=== PATIENT | male | born 1975 | race African-American/Black ===

== ENCOUNTER 2019-12-29 17:24 | Emergency (ER) | payer OTHER ==
--- NOTE | 2019-12-29 18:18 | Event Note ---
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 Further treatment and workup at subsequent clinical providers discretion. Patient/guardian urged not to elope from the ED as their condition may be serious if not clinically assessed and managed. Initial orders include: recent travel to [place]
--- NOTE | 2019-12-29 18:54 | XRay Report ---
CHEST 2 VIEWS INDICATION: MAIN: sob; midchest pain x 1 week; no medical hx. COMPARISON: None. FINDINGS: Support devices: None. Heart: Within normal limits. Lungs/Pleura: No acute air space or interstitial disease. No significant pleural effusion. IMPRESSION: No acute findings. Signer Name: Juan Antonio So MD Signed: 12/29/2019 6:50 PM Workstation Name: [employer] [id number]
[2019-12-29 19:32] LABS: Basophils % (Auto) 0.6 % (0.0-1.8); Eosinophils # (Auto) 0.4 K/mm3 (0.0-0.4); Eosinophils % (Auto) 6.2 % (0.0-4.3); Hemoglobin 15.2 gm/dl (11.8-15.2); Lymphocytes # (Auto) 2.3 K/mm3 (1.2-5.4); Lymphocytes % (Auto) 32.8 % (13.4-35.0); Mean Corpuscular HGB Conc 33 % (32-34); Mean Corpuscular Volume 90 fl (84-94); Monocytes # (Auto) 0.8 K/mm3 (0.0-0.8); Monocytes % (Auto) 11.5 % (0.0-7.3); Platelet Count 293 K/mm3 (140-440); Red Blood Count 5.11 M/mm3 (3.65-5.03); Red Cell Distribution Width 13.8 % (13.2-15.2)
[2019-12-29 19:46] LABS: Alanine Aminotransferase 50 units/L (7-56); Albumin 4.5 g/dL (3.9-5); BUN/Creatinine Ratio 20; Blood Urea Nitrogen 18 mg/dL (9-20); Calcium 9.7 mg/dL (8.4-10.2); Hemolysis Index 12
--- NOTE | 2019-12-29 21:06 | Emergency Department Report ---
ED General Adult HPI - General Chief complaint: Dyspnea/Respdistress Stated complaint: DRY COUGH/SOB Time Seen by Provider: 12/29/19 18:15 Source: patient Mode of arrival: Ambulatory Limitations: No Limitations - History of Present Illness Initial comments: Patient is a 44-year-old gentleman who is presenting with cough mild shortness of breath chest tightness. Patient states symptoms started approximately 10 days ago while he was on vacation to the [place] [employer]. Patient has been back home for the past 5 days. He states that he initially had a mild sore throat and body aches as well but does have improved. Patient generally states his symptoms are better than when they started. Patient was worried about having contracted coronavirus on his travels and decided to come in for evaluation. Severity scale (0 -10): 2 Associated Symptoms: chest pain, cough, malaise, shortness of breath. denies: confusion, diaphoresis, fever/chills, headaches, loss of appetite, nausea/vomiting, rash, seizure, syncope, weakness - Related Data Allergies Allergy/AdvReac Type Severity Reaction Status Date / Time No Known Allergies Allergy Verified 12/29/19 18:17 ED Review of Systems ROS: Stated complaint: DRY COUGH/SOB Other details as noted in HPI Comment: All other systems reviewed and negative ED Past Medical Hx - Past Medical History Previous Medical History?: No - Surgical History Past Surgical History?: No - Social History Smoking Status: Never Smoker Substance Use Type: None ED Physical Exam - General Limitations: No Limitations General appearance: alert, in no apparent distress - Head Head exam: Present: atraumatic, normocephalic - Eye Eye exam: Present: normal appearance, PERRL, EOMI - ENT ENT exam: Present: mucous membranes moist - Neck Neck exam: Present: normal inspection - Respiratory Respiratory exam: Present: normal lung sounds bilaterally. Absent: respiratory distress, wheezes, rales, rhonchi - Cardiovascular Cardiovascular Exam: Present: regular rate, normal rhythm, normal heart sounds. Absent: systolic murmur, diastolic murmur, rubs, gallop - GI/Abdominal GI/Abdominal exam: Present: soft, normal bowel sounds. Absent: distended, tenderness, guarding, rebound - Rectal Rectal exam: Present: deferred - Extremities Exam Extremities exam: Present: normal inspection - Back Exam Back exam: Present: normal inspection - Neurological Exam Neurological exam: Present: alert, oriented X3 - Psychiatric Psychiatric exam: Present: normal affect, normal mood - Skin Skin exam: Present: warm, dry, intact, normal color. Absent: rash ED Course Vital Signs 12/29/19 12/29/19 12/29/19 18:17 20:10 20:30 Temperature 98.2 F 97.7 F Pulse Rate 78 89 66 Respiratory 16 17 16 Rate Blood Pressure 156/117 129/91 Blood Pressure 147/97 [Left] O2 Sat by Pulse 97 98 97 Oximetry 12/29/19 20:45 Temperature Pulse Rate 63 Respiratory 15 Rate Blood Pressure 130/92 Blood Pressure [Left] O2 Sat by Pulse 97 Oximetry ED Medical Decision Making - Lab Data Result diagrams: 12/29/19 19:02 12/29/19 19:02 Lab Results 12/29/19 12/29/19 12/29/19 Range/Units 19:02 19:02 19:30 WBC 7.2 (4.5-11.0) K/mm3 RBC 5.11 H (3.65-5.03) M/mm3 Hgb 15.2 (11.8-15.2) gm/dl Hct 46.0 H (35.5-45.6) % MCV 90 (84-94) fl MCH 30 (28-32) pg MCHC 33 (32-34) % RDW 13.8 (13.2-15.2) % Plt Count 293 (140-440) K/mm3 Lymph % (Auto) 32.8 (13.4-35.0) % [place] % (Auto) 11.5 H (0.0-7.3) % Eos % (Auto) 6.2 H (0.0-4.3) % Baso % (Auto) 0.6 (0.0-1.8) % Lymph # 2.3 (1.2-5.4) K/mm3 [place] # 0.8 (0.0-0.8) K/mm3 Eos # 0.4 (0.0-0.4) K/mm3 Baso # 0.0 (0.0-0.1) K/mm3 Seg Neutrophils % 48.9 (40.0-70.0) % Seg Neutrophils # 3.5 (1.8-7.7) K/mm3 Sodium 139 (137-145) mmol/L Potassium 4.6 (3.6-5.0) mmol/L Chloride 99.6 (98-107) mmol/L Carbon Dioxide 27 (22-30) mmol/L Anion Gap 17 mmol/L BUN 18 (9-20) mg/dL Creatinine 0.9 (0.8-1.5) mg/dL Estimated GFR > 60 ml/min BUN/Creatinine Ratio 20 % Glucose 100 (75-100) mg/dL Calcium 9.7 (8.4-10.2) mg/dL Ferritin 266.5 (13.0-400.0) ng/mL Total Bilirubin 0.30 (0.1-1.2) mg/dL AST 36 (5-40) units/L ALT 50 (7-56) units/L Alkaline Phosphatase 104 (35-129) units/L Total Protein 7.1 (6.3-8.2) g/dL Albumin 4.5 (3.9-5) g/dL Albumin/Globulin Ratio 1.7 % Influenza A (Rapid) (Negative) Influenza B (Rapid) (Negative) 12/29/19 Range/Units Unknown WBC (4.5-11.0) K/mm3 RBC (3.65-5.03) M/mm3 Hgb (11.8-15.2) gm/dl Hct (35.5-45.6) % MCV (84-94) fl MCH (28-32) pg MCHC (32-34) % RDW (13.2-15.2) % Plt Count (140-440) K/mm3 Lymph % (Auto) (13.4-35.0) % [place] % (Auto) (0.0-7.3) % Eos % (Auto) (0.0-4.3) % Baso % (Auto) (0.0-1.8) % Lymph # (1.2-5.4) K/mm3 [place] # (0.0-0.8) K/mm3 Eos # (0.0-0.4) K/mm3 Baso # (0.0-0.1) K/mm3 Seg Neutrophils % (40.0-70.0) % Seg Neutrophils # (1.8-7.7) K/mm3 Sodium (137-145) mmol/L Potassium (3.6-5.0) mmol/L Chloride (98-107) mmol/L Carbon Dioxide (22-30) mmol/L Anion Gap mmol/L BUN (9-20) mg/dL Creatinine (0.8-1.5) mg/dL Estimated GFR ml/min BUN/Creatinine Ratio % Glucose (75-100) mg/dL Calcium (8.4-10.2) mg/dL Ferritin (13.0-400.0) ng/mL Total Bilirubin (0.1-1.2) mg/dL AST (5-40) units/L ALT (7-56) units/L Alkaline Phosphatase (35-129) units/L Total Protein (6.3-8.2) g/dL Albumin (3.9-5) g/dL Albumin/Globulin Ratio % Influenza A (Rapid) Positive A (Negative) Influenza B (Rapid) Negative (Negative) - Radiology Data [facility] [address] [place] [address] XRay Report Signed Patient: WALTER CARDOZO MR#: [id number] : 1975 Acct:[id number] Age/Sex: 44 / M ADM Date: 12/29/19 Loc: ED Attending Dr: Ordering Physician: VIANCA RIOJAS Date of Service: 12/29/19 Procedure(s): XR chest routine 2V Accession Number(s): [id number] cc: VIANCA RIOJAS Fluoro Time In Minutes: CHEST 2 VIEWS INDICATION: MAIN: sob; midchest pain x 1 week; no medical hx. COMPARISON: None. FINDINGS: Support devices: None. Heart: Within normal limits. Lungs/Pleura: No acute air space or interstitial disease. No significant pleural effusion. IMPRESSION: No acute findings. Signer Name: Juan Antonio So MD Signed: 12/29/2019 6:50 PM Workstation Name: [employer] - Medical Decision Making Patient does have a influenza A. She is symptoms are improving from when they began believe he can be treated [id number] with medications. No pneumonia was found. His ferritin level was normal making him low risk for having significant symptoms in case he has a coinfection with coronavirus. Critical care attestation.: If time is entered above; I have spent that time in minutes in the direct care of this critically ill patient, excluding procedure time. ED Disposition Clinical Impression: Influenza Disposition: DC-01 TO HOME OR SELFCARE Is pt being admited?: No Does the pt Need Aspirin: No Condition: Stable Instructions: Influenza (ED) Additional Instructions: Please self quarantine for another 5 days. Patient stable for discharge Time of Disposition: 21:04
[2019-12-29 21:07] LABS: C-Reactive Protein 0.4 mg/dL (0.00-1.30)
[2019-12-29 21:36] VITALS: BP 130/95
== END 2019-12-29 21:15 | disposition home or self-care (01) ==
LOC: ED 17:24
DX: J11.1 Influenza due to unidentified influenza virus with other respiratory manifestations (principal)
CPT/HCPCS: 36415; 71046; 80053; 82728; 83615; 85025; 86140; 87400; 99283